=== PATIENT | female | born 1990 | race Caucasian/White ===

== ENCOUNTER 2016-10-12 23:21 | Emergency (ER) | payer OTHER ==
[~2016-10-12] VITALS: Ht 149.9 cm; Wt 77.1 kg
[2016-10-12 23:30] VITALS: BP 138/90
--- NOTE | 2016-10-13 00:03 | NUR ---
PT TAKEN TO [facility]
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
--- NOTE | 2016-10-13 00:26 | NUR ---
Dr. Aponte evaluating patient
[2016-10-13] MEDS ORDERED: AMPICILLIN/SULBACTAM 3 GM VIAL IM ONE (00:30)
[2016-10-13] MEDS ORDERED: ACETAMINOPHEN/CODEINE 300/30MG 1 TAB PO ONE (00:30)
[2016-10-13] MEDS ORDERED: WATER STERILE 10 ML MC ONE (00:49)
[2016-10-13 01:43] VITALS: BP 141/83
--- NOTE | 2016-10-13 01:43 | NUR ---
Patient discharged with v/s stable. Written and verbal after care instructions given and explained. Patient alert, oriented and verbalized understanding of instructions. Ambulatory with steady gait. All questions addressed prior to discharge. ID band removed. Patient advised to follow up with PMD. Rx of Augmentin, Naproxen, and Tylenol #3 given. Patient educated on indication of medication including possible reaction and side effects. Opportunity to ask questions provided and answered.
== END 2016-10-13 01:43 | disposition home or self-care (01) ==
LOC: MED 23:21
DX: S61.253A Open bite of left middle finger without damage to nail, initial encounter (principal); S61.257A Open bite of left little finger without damage to nail, initial encounter; Y04.1XXA Assault by human bite, initial encounter; Y93.89 Activity, other specified; Y92.89 Other specified places as the place of occurrence of the external cause; Y99.8 Other external cause status
CPT/HCPCS: 73140; 90471; 90715; 96372; 99284; J0295

== ENCOUNTER 2016-12-27 00:45 | Emergency (ER) | payer OTHER ==
[~2016-12-27] VITALS: Ht 149.9 cm; Wt 55.8 kg
[2016-12-27 00:56] VITALS: BP 131/90
--- NOTE | 2016-12-27 01:30 | NUR ---
PATIENT LEFT WITHOUT BEING SEEN BY DR. GOMEZ. NO FURTHER CARE PROVIDED FOR PATIENT.
== END 2016-12-27 01:30 | disposition left against medical advice (07) ==
LOC: MED 00:45
DX: R30.9 Painful micturition, unspecified (principal); Z53.21 Procedure and treatment not carried out due to patient leaving prior to being seen by health care provider

== ENCOUNTER 2017-07-19 17:16 | Emergency (ER) | payer OTHER ==
--- NOTE | 2017-07-19 18:26 | NUR ---
CALLED AT THE LOBBY AND OUTSIDE, NO RESPONSE; LWBS
== END 2017-07-19 18:26 | disposition left against medical advice (07) ==
LOC: MED 17:16
DX: Z53.21 Procedure and treatment not carried out due to patient leaving prior to being seen by health care provider (principal)
CPT/HCPCS: 99281

== ENCOUNTER 2021-02-16 23:00 | Emergency (ER) | payer MEDICAID, OTHER ==
[~2021-02-16] VITALS: Ht 149.9 cm; Wt 81.6 kg
[2021-02-16 23:25] VITALS: BP 143/87
--- NOTE | 2021-02-16 23:27 | NUR ---
TO LOBBY A/W BED AMBULATORY
--- NOTE | 2021-02-16 23:30 | NUR ---
31 Y/O FEMALE PATIENT PRESENTS TO ED WITH VAGINAL DISCOMFORT . PT STATES "I HAVE A VAGINAL PAIN OF 8/10 AND DOES NOT RADIATE. I HAVE A BOIL IN MY VAGINA." DENIES N/V/D; SKIN IS PINK/WARM/DRY; AAOX4 WITH EVEN AND STEADY GAIT; LUNGS CLEAR BL; HR EVEN AND REGULAR; PT DENIES ANY FEVER, CP, SOB, OR COUGH AT THIS TIME; PATIENT STATES PAIN OF 8/10 AT THIS TIME; VSS; PATIENT POSITIONED FOR COMFORT; HOB ELEVATED; BEDRAILS UP X2; BED DOWN. ER MD MADE AWARE OF PT STATUS. NKA PMH: DENIES
--- NOTE | 2021-02-17 02:17 | NUR ---
FEMALE CHAPERONED DR. ALFARO FOR VAGINAL EXAM
[2021-02-17] MEDS ORDERED: CLIN-178 PO (02:31)
[2021-02-17 02:37] VITALS: BP 135/87
--- NOTE | 2021-02-17 02:37 | NUR ---
Patient discharged with v/s stable. Written and verbal after care instructions given and explained. Patient alert, oriented and verbalized understanding of instructions. Ambulatory with steady gait. All questions addressed prior to discharge. ID band removed. Patient advised to follow up with PMD. Rx of CLINDAMYCIN given. Patient educated on indication of medication including possible reaction and side effects. Opportunity to ask questions provided and answered.
== END 2021-02-17 02:37 | disposition home or self-care (01) ==
LOC: MED 23:00
DX: L73.9 Follicular disorder, unspecified (principal)
CPT/HCPCS: 99284

== ENCOUNTER 2021-04-07 20:10 | Emergency (ER) | payer MEDICAID ==
[~2021-04-07] VITALS: Ht 149.9 cm; Wt 77.1 kg
[~2021-04-07 20:10] MED LIST: CLIN300C52 PO
[2021-04-07 20:15] VITALS: BP 138/90
--- NOTE | 2021-04-07 20:19 | NUR ---
TO LOBBY FOLLOWING TRIAGE
--- NOTE | 2021-04-07 21:23 | NUR ---
TO BED AMBULATORY
--- NOTE | 2021-04-07 21:25 | NUR ---
PT. IS A 31 Y/O FEMALE THAT CAME INTO ED WITH C/O OF SORE THROAT. PT. STATES THAT THE SORE THROAT STARTED 1 WEEK AGO. UPON ASSESSMENT, PT. HAS SWOLLEN TONSILS AND STATES THAT SHE HAS DIFFICULTY EATING. PT. RATES PAIN AT 6/10 ON THE PAIN SCALE AT THIS TIME. SKIN IS PINK/WARM/DRY; AAOX4 WITH EVEN AND STEADY GAIT; HR EVEN AND REGULAR; VSS; PATIENT POSITIONED FOR COMFORT; HOB ELEVATED; BEDRAILS UP X2; BED DOWN. ER MD MADE AWARE OF PT STATUS. PMH: DENIES ALLERGIES: ARLEN
[2021-04-07] MEDS ORDERED: PRED20TA5 PO (22:24)
[2021-04-07] MEDS ORDERED: AMOX500C25 PO (22:24)
--- NOTE | 2021-04-07 22:45 | NUR ---
Patient discharged with v/s stable. Written and verbal after care instructions given and explained. Patient alert, oriented and verbalized understanding of instructions. Ambulatory with steady gait. All questions addressed prior to discharge. ID band removed. Patient advised to follow up with PMD. Rx of amoxicillin and deltasone given. Patient educated on indication of medication including possible reaction and side effects. Opportunity to ask questions provided and answered.
[2021-04-07 22:51] VITALS: BP 138/90
== END 2021-04-07 22:45 | disposition home or self-care (01) ==
LOC: MED 20:10
DX: J02.9 Acute pharyngitis, unspecified (principal); Z79.899 Other long term (current) drug therapy
CPT/HCPCS: 99283

== ENCOUNTER 2022-08-29 23:35 | Emergency (ER) | payer MEDICAID ==
[~2022-08-29] VITALS: Ht 149.9 cm; Wt 79.4 kg
[~2022-08-29 23:35] MED LIST changes: +AMOX500C25 PO; +PRED20TA5 PO
[2022-08-30 00:54] VITALS: BP 146/88
[2022-08-30 04:10] VITALS: BP 146/88
--- NOTE | 2022-08-30 04:10 | NUR ---
PATIENT LEFT WITHOUT BEING SEEN BY DR. MARQUEZ. NO FURTHER CARE PROVIDED FOR PATIENT.
[2022-08-30] MEDS ORDERED: IBUP-1842 PO (15:05)
[2022-08-30] MEDS ORDERED: BPM/118S31 PO (15:05)
== END 2022-08-30 04:10 | disposition left against medical advice (07) ==
LOC: MED 23:35
DX: R09.89 Other specified symptoms and signs involving the circulatory and respiratory systems (principal); Z20.822 Contact with and (suspected) exposure to COVID-19; Z53.21 Procedure and treatment not carried out due to patient leaving prior to being seen by health care provider
CPT/HCPCS: 87081

== ENCOUNTER 2022-08-30 12:38 | Emergency (ER) | payer MEDICAID ==
[~2022-08-30] VITALS: Ht 149.9 cm; Wt 79.4 kg
[2022-08-30 12:51] VITALS: BP 125/75
--- NOTE | 2022-08-30 13:00 | NUR ---
BIB SELF C/O 02/16 SORE THROAT, COUGH, PAREKH, RUNNY NOSE X 1 WEEK. SEEN HERE LAST NIGHT SAME S/S. COVID TESTED NEGATIVE YESTERDAY.
[2022-08-30] MEDS ORDERED: IBUP-1842 PO (15:05)
[2022-08-30] MEDS ORDERED: BPM/118S31 PO (15:05)
[2022-08-30 15:40] VITALS: BP 112/68
--- NOTE | 2022-08-30 15:40 | NUR ---
Patient discharged with v/s stable. Written and verbal after care instructions given and explained. Patient alert, oriented and verbalized understanding of instructions. Ambulatory with steady gait. All questions addressed prior to discharge. ID band removed. Patient advised to follow up with PMD. Rx of MOTRIN, BROMFED DM COUGH SYRUP given. Patient educated on indication of medication including possible reaction and side effects. Opportunity to ask questions provided and answered.
== END 2022-08-30 15:40 | disposition home or self-care (01) ==
LOC: MED 12:38
DX: J06.9 Acute upper respiratory infection, unspecified (principal); Z79.899 Other long term (current) drug therapy; Z79.1 Long term (current) use of non-steroidal anti-inflammatories (NSAID); Z79.2 Long term (current) use of antibiotics; Z91.018 Allergy to other foods
CPT/HCPCS: 71045; 99283

== ENCOUNTER 2023-04-01 23:09 | Emergency (ER) | payer MEDICAID ==
[~2023-04-01] VITALS: Ht 149.9 cm; Wt 75.7 kg
[~2023-04-01 23:09] MED LIST changes: +BROM118S70 PO; +IBUP-1842 PO
[2023-04-01 23:20] VITALS: BP 134/75; PULSE 90; RESP 16; TEMP 98; O2SAT 99
[2023-04-02] MEDS ORDERED: HYDR-5191 PO (00:44)
[2023-04-02] MEDS ORDERED: IBUP-2213 PO (00:44)
[2023-04-02] MEDS ORDERED: CIPR500T4 PO (00:44)
[2023-04-02] MEDS ORDERED: MEDR10TA PO (00:44)
[2023-04-02 00:56] VITALS: BP 134/75; PULSE 90; RESP 16; TEMP 98; O2SAT 99
== END 2023-04-02 00:56 | disposition home or self-care (01) ==
LOC: MED 23:09
DX: N93.8 Other specified abnormal uterine and vaginal bleeding (principal); N39.0 Urinary tract infection, site not specified; Z79.899 Other long term (current) drug therapy
CPT/HCPCS: 81002; 81025; 99282; 99283